=== PATIENT | male | born 1980 | race Caucasian/White ===

== ENCOUNTER 2017-09-13 19:53 | Emergency (ER) | payer SELFPAY ==
[~2017-09-13] VITALS: Ht 177.8 cm; Wt 65.8 kg
[~2017-09-13 19:53] MED LIST: ACHD5005 PO; AMOX-358 PO; CEPH-38 PO; CYCL10TA9 PO; DOXY-233 PO; HYDR-3062 PO; HYDR-3714 PO; HYDR1TAB PO; MPR22T TP; MULT-890 PO; NAPR-243 PO; SULF1TAB38 PO; SULF1TAB7 PO
--- OUTSIDE RECORDS SUMMARY | 2017-09-13 19:59 | XMS REPORT ---
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 Role Phone ROSANNE FLORES CP Unavailable Allergies No Known Allergies Problems Problem Type Condition ICD-9 Code Onset Dates Condition Status Problem Other, multiple, and unspecified sites, insect bite, nonvenomous, without mention of infection 919.4 Active Problem Leukocytosis, unspecified 288.60 Active Problem Enlargement of lymph nodes 785.6 Active Assessment Dental examination V72.2 Active Medications No Known Medications Procedures Procedure Coding System Code Date INTRAORL-PERIAPICAL 1 FILM 49158 CPT-4 D0220 Feb 27, 2015 BITEWING - SINGLE FILM CPT-4 D0270 Feb 27, 2015 LTD ORAL EVALUATION - PROBLEM FOCUS CPT-4 D0140 Feb 27, 2015 EXTRAC ERUPTED TOOTH/EXPOSED ROOT CPT-4 D7140 Feb 27, 2015 Results No Known Results Summary Purpose [employer] Submission
--- OUTSIDE RECORDS SUMMARY | 2017-09-13 19:59 | XMS REPORT | Continuity of Care Document ---
Author Author [facility] Organization [facility] Address Unknown Phone Unavailable Allergies Active Description Code Type Severity Reaction Onset Reported/Identified Relationship to Patient Clinical Status Yes No Known Drug Allergies [id number] Drug Allergy Mild N/A 10/26/2009 Medications There is no data. Problems Date Dx Coded Attending Type Code Diagnosis Diagnosed By 01/26/2014 DB MONTANO APRN 785.6 ENLARGEMENT OF LYMPH NODES 01/26/2014 DB MONTANO APRN 919.4 INSECT BITE NONVENOMOUS OF OTHER MULTIPLE AND UNSPECIFIED SITES WITHOUT INFECTION 01/26/2014 STANTON SANTACRUZ DO 785.6 ENLARGEMENT OF LYMPH NODES 01/26/2014 STANTON SANTACRUZ DO 919.4 INSECT BITE NONVENOMOUS OF OTHER MULTIPLE AND UNSPECIFIED SITES WITHOUT INFECTION 01/30/2014 STANTON SANTACRUZ DO 288.60 LEUKOCYTOSIS UNSPECIFIED Procedures Code [place] [address] ROUTINE VENIPUNCTURE 01/26/2014 73975 LYME EIA W/WEST BLOT 01/26/2014 73606 TULAREMIA ANTIBODY 01/26/2014 5451236 GFR CALC (RESULT ONLY) 01/26/2014 12063 CMP 01/26/2014 07896 CBC 01/26/2014 85643 EHRLICHIA ANTIBODY 01/28/2014 74727 [facility] SPOT FEVER 01/28/2014 Results There is no data. Encounters ACCT No. Visit Date/Time Discharge Status Pt. Type Provider Facility Loc./Unit Complaint [id number] 02/13/2014 05:23:00 02/13/2014 06:12:00 DIS Emergency [id number] 01/18/2014 03:29:00 01/18/2014 03:49:00 DIS Emergency [id number] 12/13/2012 09:26:00 12/13/2012 09:59:00 DIS Emergency [id number] 09/13/2017 19:55:00 ACT Emergency AARON CHRISTENSEN APRN [facility] ER POSS STAPH INFECTION R ARM [id number] 01/30/2014 09:47:00 01/30/2014 23:59:59 CLS Outpatient STANTON SANTACRUZ DO [id number] 01/26/2014 15:04:00 01/26/2014 23:59:59 CLS Outpatient DB MONTANO APRN
[2017-09-13] MEDS ORDERED: SULF1TAB35 PO (20:24)
--- NOTE | 2017-09-13 20:24 | ED Integumentary General ---
General Chief Complaint: Skin/Wound Problems Stated Complaint: POSS STAPH INFECTION R ARM Nursing Triage Note: PT REPORTS R UPPER ARM/SHOULDER WOUND X1 WEEK. SEEN AT [facility] ON 09/08/17 AND PRESCRIBED BACTRIM. Source: patient Exam Limitations: no limitations History of Present Illness Date Seen by Provider: Sep 13, 2017 Time Seen by Provider: 20:21 Initial Comments To ER with a wound to the anterior right upper arm for the past few days. He is currently on Bactrim since 09/08/17. Timing/Duration: constant Severity: moderate Allergies and Home Medications Allergies Coded Allergies: No Known Drug Allergies (Unverified , 10/26/09) Home Medications Amoxicillin/Potassium Clav 1 Each Tablet, 1 EACH PO BID, (Reported) Doxycycline Monohydrate 100 Mg Tablet, 100 MG PO BID Prescribed by: DAKOTAH GONZALES on 02/13/14 0608 Hydrocodone Bit/Acetaminophen 1 Each Tablet, 1-2 EACH PO Q6HR PRN Prescribed by: DAKOTAH GONZALES on 02/13/14 0608 Multivitamin/Iron/Folic Acid 1 Each Tablet, 1 EACH PO DAILY, (Reported) Naproxen 500 Mg Tablet, 1 EACH PO BID PRN for PAIN Prescribed by: DAKOTAH GONZALES on 02/13/14 0608 Sulfamethoxazole/Trimethoprim 1 Each Tablet, 1 EACH PO BID Prescribed by: AARON CHRISTENSEN on 09/13/172023 Patient Home Medication List Home Medication List Reviewed: Yes Constitutional: see HPI EENTM: see HPI Respiratory: no symptoms reported Cardiovascular: no symptoms reported Genitourinary: no symptoms reported Musculoskeletal: no symptoms reported Skin: no symptoms reported Psychiatric/Neurological: No Symptoms Reported Endocrine: No Symptoms Reported Hematologic/Lymphatic: No Symptoms Reported Past Mllbmhe-Yowpmz-Joldvn Hx Patient Social History Alcohol Use: Occasionally Uses Recreational Drug Use: No (SMOKES 1/2 PPD) Smoking Status: Current Everyday Smoker Type Used: Cigarettes Recent Foreign Travel: No Contact w/Someone Who Travel: No Recent Infectious Disease Expo: No Physical Abuse: No Sexual Abuse: No Mistreated: No Fear: No Surgeries History of Surgeries: Yes (TUBE IN L EAR) Respiratory History of Respiratory Disorde: No Cardiovascular History of Cardiac Disorders: No Neurological History of Neurological Disord: No Reproductive System Hx Reproductive Disorders: No Sexually Transmitted Disease: No Gastrointestinal History of Gastrointestinal Di: No Musculoskeletal History of Musculoskeletal Dis: No Endocrine History of Endocrine Disorders: No HEENT History of HEENT Disorders: No Cancer History of Cancer: No Psychosocial History of Psychiatric Problem: No Suicide Risk Score: 0 Integumentary History of Skin or Integumenta: Yes (HX OF MRSA) Blood Transfusions History of Blood Disorders: No Physical Exam Vital Signs Vital Signs - First Documented 09/13/17 20:06 Temp 98.2 Pulse 85 Resp 20 B/P (MAP) 122/81 (95) Pulse Ox 97 Capillary Refill : Less Than 3 Seconds General Appearance: WD/WN, no apparent distress HEENT: PERRL/EOMI, normal ENT inspection Neck: non-tender, full range of motion Respiratory: no respiratory distress, no accessory muscle use Gastrointestinal: normal bowel sounds, non tender, soft Neurologic/Psychiatric: alert, oriented x 3 Skin: normal color, warm/dry Skin Problem Location: upper extremities Skin Problem Character: other (there is a 2 x 3 cm abscess to the anterior right upper arm. This is open and draining. No need for incision and drainage or packing. No surrounding cellulitis but there is some induration surrounding it.) Progress/Results/Core Measures Results/Orders My Orders Orders - AARON CHRISTENSEN APRN Mupirocin Ointment (Bactroban Ointment (09/13/17 21:00) Vital Signs/I&O Vital Sign - Last 12Hours 09/13/17 09/13/17 20:06 20:36 Temp 98.2 98.2 Pulse 85 87 Resp 20 20 B/P (MAP) 122/81 (95) 123/76 (95) Pulse Ox 97 98 Blood Pressure Mean: 95 Departure Impression Impression: Primary Impression: Abscess Disposition: 01 HOME, SELF-CARE Condition: Stable Departure-Patient Inst. Decision time for Depature: 20:23 Referrals: [facility] (PCP/Family) Primary Care Physician Patient Instructions: Skin Abscess Add. Discharge Instructions: 1. Apply the antibiotic ointment twice daily for the next 5 days 2. Take additionally advised 3. Expect improvement in 3-4 weeks. All discharge instructions reviewed with patient and/or family. Voiced understanding. Scripts Sulfamethoxazole/Trimethoprim (Bactrim Ds Tablet) 1 Each Tablet 1 EACH PO BID, #10 TAB Prov: AARON CHRISTENSEN APRN 09/13/17 AARON CHRISTENSEN APRN Sep 13, 2017 20:24
[2017-09-13 20:36] VITALS: BP 123/76
[2017-09-13] MEDS ORDERED: MUPIROCIN 2% OINT 22 GM (BACTROBAN) TUBE TOP SCH (21:00)
== END 2017-09-13 20:36 | disposition home or self-care (01) ==
LOC: EDUNIT# 19:53 → ER 19:55
DX: L02.413 Cutaneous abscess of right upper limb (principal); F17.210 Nicotine dependence, cigarettes, uncomplicated; Z86.14 Personal history of Methicillin resistant Staphylococcus aureus infection

== ENCOUNTER 2019-02-22 01:16 | Emergency (ER) | payer SELFPAY ==
[~2019-02-22] VITALS: Ht 177.8 cm; Wt 63.5 kg
[~2019-02-22 01:16] MED LIST changes: +SULF1TAB35 PO
[2019-02-22] MEDS ORDERED: NS IV 1000 ML 1,000 ML IV ONE (01:57)
[2019-02-22] MEDS ORDERED: KETOROLAC 30 MG/ML VIAL IVP ONE (02:00)
[2019-02-22] MEDS ORDERED: ONDANSETRON 4 MG/2 ML (SDV) Z0FRAN IVP ONE (02:00)
[2019-02-22 02:09] LABS: BASOPHILS % (AUTO) 0 % (0-10); EOSINOPHILS % (AUTO) 0 % (0-10); HEMATOCRIT 41 % (40-54); HEMOGLOBIN 13.8 G/DL (13.3-17.7); LYMPHOCYTES # (AUTO) 1.5 X 10^3 (1.0-4.0); LYMPHOCYTES % (AUTO) 11 % (12-44); MEAN CORPUSCULAR HEMOGLOBIN 30 PG (25-34); MEAN CORPUSCULAR HGB CONC 34 G/DL (32-36); MEAN CORPUSCULAR VOLUME 90 FL (80-99); MEAN PLATELET VOLUME 9.1 FL (7.4-10.4); MONOCYTES # (AUTO) 0.6 X 10^3 (0.0-1.0); MONOCYTES % (AUTO) 5 % (0-12); NEUTROPHILS # (AUTO) 10.8 X 10^3 (1.8-7.8); NEUTROPHILS % (AUTO) 84 % (42-75); PLATELET COUNT 341 10^3/uL (130-400); RED CELL DISTRIBUTION WIDTH 12.4 % (10.0-14.5); WHITE BLOOD COUNT 12.9 10^3/uL (4.3-11.0)
[2019-02-22 02:22] LABS: BILIRUBIN,URINE NEGATIVE (NEGATIVE); CLARITY,URINE SLIGHTLY CLOUDY; COLOR,URINE YELLOW; GLUCOSE, URINE (UA) NEGATIVE (NEGATIVE); KETONES,URINE 1+ (NEGATIVE); LEUKOCYTE ESTERASE ,URINE 1+ (NEGATIVE); NITRITE,URINE NEGATIVE (NEGATIVE); PH,URINE 7 (5-9); PROTEIN,URINE 2+ (NEGATIVE); UROBILINOGEN,URINE 1 MG/DL (NORMAL)
[2019-02-22 02:23] LABS: ALANINE AMINOTRANSFERASE 62 U/L (0-55); ALBUMIN 4.6 GM/DL (3.2-4.5); ALKALINE PHOSPHATASE 63 U/L (40-136); BILIRUBIN,TOTAL 0.3 MG/DL (0.1-1.0); BUN/CREATININE RATIO 14; CALCIUM 9.5 MG/DL (8.5-10.1); CARBON DIOXIDE 26 MMOL/L (21-32); CHLORIDE 100 MMOL/L (98-107); GFR ESTIMATED > 60; GLUCOSE 131 MG/DL (70-105); POTASSIUM 4.2 MMOL/L (3.6-5.0); SODIUM 137 MMOL/L (135-145); TOTAL PROTEIN 8.1 GM/DL (6.4-8.2)
[2019-02-22 02:29] LABS: BACTERIA,URINE NEGATIVE /HPF; SQUAMOUS EPITHELIAL CELL,UR RARE /HPF; WBC,URINE RARE /HPF
[2019-02-22] MEDS ORDERED: ACHD5005 PO (04:22)
[2019-02-22] MEDS ORDERED: ONDA4TAB11 SL (04:22)
--- NOTE | 2019-02-22 04:22 | ED Back Pain ---
General Chief Complaint: Back Problems Stated Complaint: BACK PAIN,POSS PULLED MUSCLE Nursing Triage Note: Pt amb to room #6 w/o difficulty. a&ox4. C/o rt sided flank pain radiating to testicles. Pt reports on the evening of 02/21/19 @ approx 1700 sharp pain began. Reports symptoms to be associated with nasuea and a feeing of fullness in the abd. 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 Denies hx kidney stones. Nursing Sepsis Screen: No Definite Risk Source of Information: Patient Exam Limitations: No Limitations History of Present Illness Date Seen by Provider: Feb 22, 2019 Time Seen by Provider: 01:45 Initial Comments This 39-year-old man presents to the emergency room with complaints of pain in the right flank radiating down through the right lower abdomen and toward the testicles. Pain was of sudden onset and initially rated as a 10 on the pain scale. He took a hydrocodone at home. At first he thought he strained his back shoveling gravel. He denies any urinary changes. He has no history of kidney stones. He has associated nausea without vomiting. Allergies and Home Medications Allergies Coded Allergies: No Known Drug Allergies (Unverified , 10/26/09) Home Medications Amoxicillin/Potassium Clav 1 Each Tablet, 1 EACH PO BID, (Reported) Doxycycline Monohydrate 100 Mg Tablet, 100 MG PO BID Prescribed by: DAKOTAH GONZALES on 02/13/14 0608 Hydrocodone Bit/Acetaminophen 1 Each Tablet, 1-2 EACH PO Q6HR PRN Prescribed by: DAKOTAH GONZALES on 02/13/14 0608 Hydrocodone Bit/Acetaminophen 1 Tab Tab, 1 EACH PO Q4-6HR PRN for PAIN-MODERATE Prescribed by: SHERIF SRINIVASAN on 02/22/19 0422 Multivitamin/Iron/Folic Acid 1 Each Tablet, 1 EACH PO DAILY, (Reported) Naproxen 500 Mg Tablet, 1 EACH PO BID PRN for PAIN Prescribed by: DAKOTAH GONZALES on 02/13/14 0608 Ondansetron 4 Mg Tab.rapdis, 4 MG SL Q4H PRN for NAUSEA/VOMITING Prescribed by: SHERIF SRINIVASAN on 02/22/19 0422 Sulfamethoxazole/Trimethoprim 1 Each Tablet, 1 EACH PO BID Prescribed by: AARON CHRISTENSEN on 09/13/172023 Patient Home Medication List Home Medication List Reviewed: Yes Review of Systems Constitutional: no symptoms reported EENTM: no symptoms reported Respiratory: no symptoms reported Cardiovascular: no symptoms reported Gastrointestinal: see HPI Genitourinary: see HPI Musculoskeletal: no symptoms reported Skin: no symptoms reported Psychiatric/Neurological: No Symptoms Reported Past Ftbiqfa-Osuuja-Qoaofd Hx Past Med/Social Hx: Reviewed Nursing Past Med/Soc Hx Patient Social History Alcohol Use: Rarely Uses Number of Drinks Today: 0 Recreational Drug Use: No Smoking Status: Current Everyday Smoker Type Used: Cigarettes 2nd Hand Smoke Exposure: Yes Recent Foreign Travel: No Contact w/Someone Who Travel: No Recent Infectious Disease Expo: No Past Medical History Surgeries: Yes (TUBE IN L EAR) Respiratory: No Cardiac: No Neurological: No Reproductive Disorders: No Sexually Transmitted Disease: No Gastrointestinal: No Musculoskeletal: No Endocrine: No HEENT: No Cancer: No Psychosocial: No Integumentary: Yes (HX OF MRSA) Blood Disorders: No Physical Exam Vital Signs Vital Signs - First Documented 02/22/19 01:39 Temp 96.9 Pulse 75 Resp 18 B/P (MAP) 138/72 (94) Pulse Ox 100 O2 Delivery Room Air Capillary Refill : Less Than 3 Seconds Height, Weight, BMI Height: 5'10.00" Weight: 140lbs. oz. 63.015477jg; BMI Method:Stated General Appearance: WD/WN, Moderate Distress HEENT: PERRL/EOMI, Normal ENT Inspection Neck: Normal Inspection Cardiovascular: Regular Rate, Rhythm, No Edema, No Murmur Respiratory: Lungs Clear, Normal Breath Sounds, No Accessory Muscle Use, No Respiratory Distress Gastrointestinal: Normal Bowel Sounds, Soft, Tenderness (throughout the right abdomen) Genital/Rectal: Normal Genital Exam, Other (slight diffuse tenderness of the testicles. No swelling. 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 Skin: Normal Color, Warm/Dry Progress/Results/Core Measures Results/Orders Lab Results Laboratory Tests Test 02/22/19 01:45 02/22/19 01:52 Range/Units White Blood Count 12.9 H 4.3-11.0 10^3/uL Red Blood Count 4.57 4.35-5.85 10^6/uL Hemoglobin 13.8 13.3-17.7 G/DL Hematocrit 41 40-54 % Mean Corpuscular Volume 90 80-99 FL Mean Corpuscular Hemoglobin 30 25-34 PG Mean Corpuscular Hemoglobin Concent 34 32-36 G/DL Red Cell Distribution Width 12.4 10.0-14.5 % Platelet Count 341 130-400 10^3/uL Mean Platelet Volume 9.1 7.4-10.4 FL Neutrophils (%) (Auto) 84 H 42-75 % Lymphocytes (%) (Auto) 11 L 12-44 % Monocytes (%) (Auto) 5 0-12 % Eosinophils (%) (Auto) 0 0-10 % Basophils (%) (Auto) 0 0-10 % Neutrophils # (Auto) 10.8 H 1.8-7.8 X 10^3 Lymphocytes # (Auto) 1.5 1.0-4.0 X 10^3 Monocytes # (Auto) 0.6 0.0-1.0 X 10^3 Eosinophils # (Auto) 0.0 0.0-0.3 10^3/uL Basophils # (Auto) 0.0 0.0-0.1 10^3/uL Sodium Level 137 135-145 MMOL/L Potassium Level 4.2 3.6-5.0 MMOL/L Chloride Level 100 98-107 MMOL/L Carbon Dioxide Level 26 21-32 MMOL/L Anion Gap 11 5-14 MMOL/L Blood Urea Nitrogen 15 7-18 MG/DL Creatinine 1.10 0.60-1.30 MG/DL Estimat Glomerular Filtration Rate > 60 BUN/Creatinine Ratio 14 Glucose Level 131 H 70-105 MG/DL Calcium Level 9.5 8.5-10.1 MG/DL Corrected Calcium 8.5-10.1 MG/DL Total Bilirubin 0.3 0.1-1.0 MG/DL Aspartate Amino Transf (AST/SGOT) 35 H 5-34 U/L Alanine Aminotransferase (ALT/SGPT) 62 H 0-55 U/L Alkaline Phosphatase 63 40-136 U/L Total Protein 8.1 6.4-8.2 GM/DL Albumin 4.6 H 3.2-4.5 GM/DL Urine Color YELLOW Urine Clarity SLIGHTLY CLOUDY Urine pH 7 5-9 Urine Specific [place] 1.015 L 1.016-1.022 Urine Protein 2+ H NEGATIVE Urine Glucose (UA) NEGATIVE NEGATIVE Urine Ketones 1+ H NEGATIVE Urine Nitrite NEGATIVE NEGATIVE Urine Bilirubin NEGATIVE NEGATIVE Urine Urobilinogen 1 NORMAL MG/DL Urine Leukocyte Esterase 1+ H NEGATIVE Urine RBC (Auto) 4+ H NEGATIVE Urine RBC 10-25 H /HPF Urine WBC RARE /HPF Urine Squamous Epithelial Cells RARE /HPF Urine Crystals NONE /LPF Urine Bacteria NEGATIVE /HPF Urine Casts NONE /LPF Urine Mucus LARGE H /LPF Urine Culture Indicated NO My Orders Orders - SHERIF JASON MD Cbc With Automated Diff (02/22/19 01:57) Comprehensive Metabolic Panel (02/22/19 01:57) Ua Culture If Indicated (02/22/19 01:57) Ed Iv/Invasive Line Start (02/22/19 01:57) Ns Iv 1000 Ml (Sodium Chloride 0.9%) (02/22/19 01:57) Ketorolac Injection (Toradol Injection) (02/22/19 02:00) Ondansetron Injection (Zofran Injectio (02/22/19 02:00) Ct Abd/Pelvis Wo(Kidney Stone) (02/22/19 02:49) Medications Given in ED Current Medications Medications Dose Ordered Sig/Enma Route Start Time Stop Time Status Last Admin Dose Admin Ketorolac Tromethamine 15 mg ONCE ONCE IVP 02/22/19 02:00 02/22/19 02:01 DC 02/22/19 02:15 15 MG Ondansetron HCl 8 mg ONCE ONCE IVP 02/22/19 02:00 02/22/19 02:01 DC 02/22/19 02:15 8 MG Sodium Chloride 1,000 ml @ 0 mls/hr Q0M ONCE IV 02/22/19 01:57 02/22/19 02:01 DC 02/22/19 02:15 0 MLS/HR Vital Signs/I&O 02/22/19 01:39 Temp 96.9 Pulse 75 Resp 18 B/P (MAP) 138/72 (94) Pulse Ox 100 O2 Delivery Room Air Blood Pressure Mean: 94 Progress Progress Note : Progress Note Patient's pain was treated with Toradol. Nausea was treated with Zofran. Blood was found in the urine and further evaluation was pursued with CT scan. CT revealed a small 2 mm stone in the right UVJ. Diagnostic Imaging Diagonstic Imaging: CT Plain Films/CT/US/NM/MRI: abdomen, pelvis Comments CT abdomen and pelvis viewed by me and [employer] report reviewed. There is a 2 mm stone at the right UVJ. Departure Impression Primary Impression: Right ureteral stone Additional Impression: Nausea Disposition: 01 HOME, SELF-CARE Condition: Improved Departure-Patient Inst. Decision time for Depature: 04:19 Referrals: [facility] (PCP/Family) Primary Care Physician Patient Instructions: Kidney Stone Diet, Kidney Stones in Adults, Nausea and Vomiting, Adult (DC) Add. Discharge Instructions: Drink plenty of clear liquids. For primary pain control take ibuprofen up to 600 mg every 6 hours as needed. You may add either Tylenol (acetaminophen) 1000 mg every 6 hours or hydrocodone as prescribed for additional pain relief. Strain your urine and bring any stones collected to your primary care provider in follow-up. Follow-up with your primary care provider within the next week. Return to the emergency room if you have worsening symptoms or you develop new symptoms such as fever. All discharge instructions reviewed with patient and/or family. Voiced understanding. Scripts Hydrocodone Bit/Acetaminophen (Hydrocodone/Acetaminophen 5/325mg Tablet) 1 Tab Tab 1 EACH PO Q4-6HR PRN for PAIN-MODERATE MDD 10, #10 TAB Prov: SHERIF JASON MD 02/22/19 Ondansetron (Ondansetron Odt) 4 Mg Tab.rapdis 4 MG SL Q4H PRN for NAUSEA/VOMITING, #10 TAB Prov: SHERIF JASON MD 02/22/19 SHERIF JASON MD Feb 22, 2019 04:22
[2019-02-22 04:34] VITALS: BP 122/84
--- NOTE | 2019-02-22 07:58 | Diagnostic Imaging Report ---
PROCEDURE: CT urinary tract, rule out kidney stone. TECHNIQUE: Multiple contiguous axial images were obtained through the abdomen and pelvis without the use of intravenous contrast. Auto Exposure Controls were utilized during the CT exam to meet ALARA standards for radiation dose reduction. INDICATION: Pain. COMPARISON: None available. FINDINGS: The visualized lung bases are clear. The unenhanced liver, spleen, adrenal glands, pancreas, and gallbladder are grossly unremarkable. A punctate 1-2 mm calculus is noted within the right ureterovesicular junction. This is associated with mild right hydroureteronephrosis. Additionally, fat stranding is noted about the right kidney and right ureter. The left kidney and left ureter are unremarkable. No aneurysmal dilatation of abdominal aorta. The urinary bladder is decompressed, therefore not well evaluated. No bowel obstruction or pneumatosis. The appendix is not definitely visualized. No significant free air. No adenopathy. No acute osseous abnormality. IMPRESSION: 1-2 mm calculus within the right ureterovesicular junction with resulting mild right hydroureteronephrosis. Right perinephric and right periureteral fat stranding. This may relate to superimposed infectious or inflammatory process. Agree with preliminary interpretation. Dictated by: Dictated on workstation # [id number]
== END 2019-02-22 04:34 | disposition home or self-care (01) ==
LOC: EDUNIT# 01:16 → ER 01:20
DX: N20.0 Calculus of kidney (principal); R11.0 Nausea; F17.210 Nicotine dependence, cigarettes, uncomplicated
CPT/HCPCS: 36415; 74176; 80053; 81000; 85025

== ENCOUNTER 2019-05-22 23:11 | Emergency (ER) | payer SELFPAY ==
[~2019-05-22] VITALS: Ht 178 cm; Wt 64.5 kg
[~2019-05-22 23:11] MED LIST changes: +ONDA4TAB11 SL
[2019-05-22] MEDS ORDERED: LIDOCAINE 1% INJ 20 ML 20 ML VIAL INJ ONE (23:30)
--- NOTE | 2019-05-22 23:33 | ED Integumentary General ---
General Chief Complaint: Bite-Animal/Human/Insect Stated Complaint: L KNEE PAIN & SWELLING,POSS SPIDER BITE Source: patient Exam Limitations: no limitations History of Present Illness Date Seen by Provider: May 22, 2019 Time Seen by Provider: 23:19 Initial Comments Patient presents ER by private conveyance chief complaint last couple days his nose red spot broke swell causing pain and having some discharge over the left anterior knee. No fevers chills nausea vomiting. He's had a few staph infections before but no history of hidradenitis or other skin disorder. He did not witness an insect or spider biting him. Allergies and Home Medications Allergies Coded Allergies: No Known Drug Allergies (Unverified , 10/26/09) Home Medications Amoxicillin/Potassium Clav 1 Each Tablet, 1 EACH PO BID, (Reported) Doxycycline Monohydrate 100 Mg Tablet, 100 MG PO BID Prescribed by: DAKOTAH GONZALES on 02/13/14 0608 Hydrocodone Bit/Acetaminophen 1 Each Tablet, 1-2 EACH PO Q6HR PRN Prescribed by: DAKOTAH GONZALES on 02/13/14 0608 Hydrocodone Bit/Acetaminophen 1 Tab Tab, 1 EACH PO Q4-6HR PRN for PAIN-MODERATE Prescribed by: SHERIF SRINIVASAN on 02/22/19 0422 Multivitamin/Iron/Folic Acid 1 Each Tablet, 1 EACH PO DAILY, (Reported) Naproxen 500 Mg Tablet, 1 EACH PO BID PRN for PAIN Prescribed by: DAKOTAH GONZALES on 02/13/14 0608 Ondansetron 4 Mg Tab.rapdis, 4 MG SL Q4H PRN for NAUSEA/VOMITING Prescribed by: SHERIF SRINIVASAN on 02/22/19 0422 Sulfamethoxazole/Trimethoprim 1 Each Tablet, 1 EACH PO BID Prescribed by: AARON CHRISTENSEN on 09/13/172023 Sulfamethoxazole/Trimethoprim 1 Each Tablet, 1 EACH PO BID Prescribed by: TOMMY GASPAR on 05/22/19 7357 Patient Home Medication List Home Medication List Reviewed: Yes Review of Systems Review of Systems Constitutional: No chills, No diaphoresis EENTM: No ear discharge, No ear pain Respiratory: No cough, No short of breath Cardiovascular: No chest pain, No edema Gastrointestinal: No abdominal pain, No constipation, No diarrhea Genitourinary: No discharge, No dysuria Musculoskeletal: No back pain, No joint pain Skin: see HPI Past Gyclmwb-Yllsku-Pyzlaz Hx Patient Social History Alcohol Use: Denies Use Type Used: Cigarettes 2nd Hand Smoke Exposure: Yes Recent Foreign Travel: No Contact w/Someone Who Travel: No Past Medical History Surgeries: Yes (TUBE IN L EAR) Respiratory: No Cardiac: No Neurological: No Reproductive Disorders: No Sexually Transmitted Disease: No Gastrointestinal: No Musculoskeletal: No Endocrine: No HEENT: No Cancer: No Psychosocial: No Integumentary: Yes (HX OF MRSA) Blood Disorders: No Physical Exam Vital Signs Vital Signs - First Documented 05/22/19 23:20 Temp 36.4 Pulse 94 Resp 18 B/P (MAP) 110/74 (86) Pulse Ox 100 O2 Delivery Room Air Capillary Refill : General Appearance: WD/WN, no apparent distress HEENT: PERRL/EOMI, pharynx normal Neck: full range of motion, normal inspection Cardiovascular: normal peripheral pulses, regular rate, rhythm Respiratory: no respiratory distress, no accessory muscle use Neurologic/Psychiatric: alert, normal mood/affect, oriented x 3 Skin: other (4 x 3 cm area of redness, mild induration and fluctuance with a central pore and pointing and yellow purulence over the left anterior knee. No knee effusion) Procedures/Interventions I&D : Site: left anterior knee Blade Size: 11 I & D Procedure: betadine prep (chlorhexidine, alcohol) Progress Wound was thoroughly cleaned with alcohol and chlorhexidine and then infiltrated with 2 cc of 1% lidocaine. The skin was ascertained to be anesthetized so we used an 11 blade scalpel to make a cross dowell 1 cm by one centimeters incision at the pointing and expressed approximately 10 cc of purulence. The patient would not permit us to break up loculations so we flushed the wound with 20 cc of sterile saline and put a loose gauze dressing over it. Patient tolerated procedure otherwise well. Progress/Results/Core Measures Results/Orders My Orders Orders - TOMMY GASPAR Lidocaine 1% Inj 20 Ml (Xylocaine 1% Inj (05/22/19 23:30) Medications Given in ED Current Medications Medications Dose Ordered Sig/Enma Route Start Time Stop Time Status Last Admin Dose Admin Lidocaine HCl 20 ml ONCE ONCE INJ 05/22/19 23:30 05/22/19 23:31 DC 05/22/19 23:37 20 ML Vital Signs/I&O 05/22/19 23:20 Temp 36.4 Pulse 94 Resp 18 B/P (MAP) 110/74 (86) Pulse Ox 100 O2 Delivery Room Air Progress Progress Note : Time: 23:35 Progress Note Plan to drain and cover with Bactrim. Departure Impression Primary Impression: Abscess Disposition: HOME, SELF-CARE Condition: Improved Departure-Patient Inst. Decision time for Depature: 00:13 Referrals: [facility] (PCP/Family) Primary Care Physician Patient Instructions: Abscess Incision and Drainage (DC) Add. Discharge Instructions: Keep clean with regular soap and water. A loose dressing to catch the drainage is recommended but do not packet the wound or put any ointments on it. Tylenol 1000 g every 8 hours as needed for pain. Ibuprofen 800 mg every 8 hours as needed for pain. Bactrim one tablet twice daily with food for the next week. Return to the ER or your primary care doctor if you have a reaccumulation of the purulence, fevers or if it continues to spread after 3 days of antibiotics. All discharge instructions reviewed with patient and/or family. Voiced understanding. Scripts Sulfamethoxazole/Trimethoprim (Bactrim Ds Tablet) 1 Each Tablet 1 EACH PO BID for 7 Days, #14 TAB 0 Refills Prov: TOMMY GASPAR 05/22/19 Work/School Note: Work Release Form Date Seen in the Emergency Department: May 23, 2019 Return to Work: May 24, 2019 Restrictions: No Restrictions TOMMY GASPAR May 22, 2019 23:33 POS
[2019-05-22] MEDS ORDERED: SULF1TAB35 PO (23:37)
[2019-05-23 00:18] VITALS: BP 110/74
== END 2019-05-23 00:19 | disposition home or self-care (01) ==
LOC: EDUNIT# 23:11 → ER 23:14
DX: L02.416 Cutaneous abscess of left lower limb (principal); Z77.22 Contact with and (suspected) exposure to environmental tobacco smoke (acute) (chronic)
CPT/HCPCS: 10160

== ENCOUNTER 2020-12-06 03:29 | Emergency (ER) | payer SELFPAY ==
[~2020-12-06] VITALS: Ht 177.8 cm; Wt 63.5 kg
[2020-12-06 03:39] VITALS: BP 125/61
[2020-12-06] MEDS ORDERED: RX-AMOXICILLIN 500 MG CAP #3 PPK PO STA (03:45)
[2020-12-06] MEDS ORDERED: RX-NAPROXEN (NAPROSYN) 250 MG TAB PPK#4 PO STA (03:45)
[2020-12-06] MEDS ORDERED: LIDO20SO23 MM (03:45)
[2020-12-06] MEDS ORDERED: NAPR500T8 PO (03:45)
[2020-12-06] MEDS ORDERED: AMOX875T2 PO (03:45)
[2020-12-06] MEDS ORDERED: LIDOCAINE 2% VISCOUS 15 ML UDC MM ONE (03:45)
--- NOTE | 2020-12-06 03:45 | ED EENT ---
History of Present Illness General Chief Complaint: Dental Problems/Pain Stated Complaint: TOOTHACHE Source: patient History of Present Illness Date Seen by Provider: December 06, 2020 Time Seen by Provider: 03:37 Initial Comments PT ARRIVES VIA POV C/O TOOTHACHE FOR OVER A MONTH CHRONIC DENTAL PROBLEMS--"BAD TEETH" PER PT HAS HAD PROBLEMS WITH THIS TOOTH IN THE PAST PT HAS NOT SOUGHT CARE AT ANY TIME DOES NOT GO TO OR HAVE A DENTIST NO SWELLING TO FACE OR JAW NO FEVER TOOK 3 TYLENOL JUST PRIOR TO ARRIVAL, OTHERWISE HAS NOT TAKEN ANYTHING FOR PAIN PCP; [facility] Allergies and Home Medications Allergies Coded Allergies: No Known Drug Allergies (Unverified , 10/26/09) Home Medications Amoxicillin 875 Mg Tablet, 875 MG PO BID Prescribed by: LUAN PATEL on 12/06/20344 Lidocaine HCl 15 Ml Solution, 1-2 ML MM [id number] Prescribed by: LUAN PATEL on 12/06/20344 Naproxen 500 Mg Tablet.dr, 500 MG PO BID Prescribed by: LUAN PATEL on 12/06/20344 Patient Home Medication List Home Medication List Reviewed: Yes Review of Systems Review of Systems Constitutional: no symptoms reported Mouth: see HPI Throat: no symptoms reported Neurological: No Symptoms Reported Past [id number]-Aexqlg Hx Past Med/Social Hx: Reviewed and Corrections made Patient Social History Alcohol Use: Regular Use (30 PACK/DAY OF BEER) Drug of Choice: DENIES Smoking Status: Current Everyday Smoker (1 PPD) Type Used: Cigarettes 2nd Hand Smoke Exposure: Yes Recent Hopitalizations: No Immunizations Up To Date Tetanus Booster (TDap): Unknown PED Vaccines UTD: Yes Seasonal Allergies Seasonal Allergies: No Past Medical History Surgeries: Yes (TUBE IN L EAR) Ear Surgery Respiratory: No Cardiac: No Neurological: No Reproductive Disorders: No Sexually Transmitted Disease: No Genitourinary: No Gastrointestinal: No Musculoskeletal: No Endocrine: No HEENT: Yes (TUBE IN LEFT EAR; DENTAL CARIES/CHRONIC DENTAL ISSUES) Cancer: No Psychosocial: No Integumentary: Yes (HX OF MRSA) Blood Disorders: No Physical Exam Height, Weight, BMI Height: 5'10.00" Weight: 140lbs. oz. 63.605106mu; 20.00 BMI Method:Stated General Appearance: WD/WN, no apparent distress, other (DRINKING COFFEE FROM WAITING ROOM, HE IS WALKING INTO ER. DOES NOT APPEAR TO BE IN ANY DISCOMFORT OR DISTRESS) Eyes: bilateral eye PERRL, bilateral eye EOMI Ears: bilateral ear TM normal Mouth/Throat: dental tenderness; No excessive drooling, No mandibular swelling, No maxillary swelling, No trismus; other (EXTENSIVE DENTAL DECAY, WITH MULTIPLE MISSING TEETH. LEFT LOWER 3RD MOLAR WITH DECAY DOWN TO GUMS. TENDER TO PERCUSSION. SLIGHT SWELLING AND ERYTHEMA TO ADJACENT GUMS. NO FLUCTUANCE. NO DRAINAGE. NO FACIAL/MANDIBULAR SWELLING. 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 Decision time for Depature: 03:43 Referrals: [facility] (PCP/Family) Primary Care Physician Patient Instructions: Dental Pain (DC), Tooth Decay, Adult (DC) Add. Discharge Instructions: FREQUENT S[place] W[place] SWISHES FOLLOW UP WITH DENTIST SOON POSSIBLE--CALL THIS MORNING TO SCHEDULE AN APPOINTMENT All discharge instructions reviewed with patient and/or family. Voiced understanding. Scripts Naproxen (Naproxen) 500 Mg Tablet. 500 MG PO BID, #20 TAB Prov: DANNY PATELA K 12/06/20 Lidocaine HCl (Lidocaine HCl Viscous) 15 Ml Solution 1-2 ML MM [id number], #120 ML Prov: DANNY PATELA K 12/06/20 Amoxicillin (Amoxicillin) 875 Mg Tablet 875 MG PO BID, #20 TAB Prov: DANNY PATELA K 12/06/20 DANNY PATELA Flaca FREEMAN December 06, 2020 03:45
== END 2020-12-06 04:03 | disposition home or self-care (01) ==
LOC: EDUNIT# 03:29 → ER 03:32
DX: K02.9 Dental caries, unspecified (principal); F17.210 Nicotine dependence, cigarettes, uncomplicated
CPT/HCPCS: 99283